=== PATIENT | female | born 1955 | race Caucasian/White ===

== ENCOUNTER → 2021-10-02 09:01 | Outpatient (BNVA) | payer MEDICARE, SELFPAY | PROVIDERS: PCP Nurse Practitioner Adult Health; Visit Provider Nurse Practitioner Family | DX: R25.1 Tremor, unspecified (principal); F09 Unspecified mental disorder due to known physiological condition; R26.9 Unspecified abnormalities of gait and mobility; Z86.79 Personal history of other diseases of the circulatory system | CPT/HCPCS: 99202 ==

== ENCOUNTER 2022-10-24 11:23 | Outpatient (AMB) | payer MEDICARE, SELFPAY ==
[2022-10-24 11:30] VITALS: BP 152/92; PULSE 51; O2SAT 96; BMI 25.7
--- NOTE | 2022-10-24 11:30 | A.OFFVIS_ITS ---
Intake Vital Signs 10/24/22 11:30 Height 5 ft Weight 131 lb 8 oz BMI 25.7 BP 152/92 H Blood Pressure Location Lt brachial Position Sitting Pulse 51 Pulse Source Pulse Oximeter Pulse Oximetry (%) 96 Oxygen Delivery Method Room Air Intake Visit Reasons: Follow up - [facility] Cog Imp-Confirmed Intake Note: Pt presents with her daughter as a f/u. new hearing aids have helped some. Set up testing for neuro psych and MRI. Things are a little up and down. Wash House Worker Required: No Accompanied by: Daughter Allergies No Known Allergies Allergy (Verified 10/24/22 11:37) HPI HPI Comments History of Present Illness Details 67 -yr-old female presents for f/u visit, accompanied by her dtr. Pt was last seen in September 2021, Pt reports the following interval medical history changes: She missed her last appt with us d/t having a mild case of COVID-19. She has not done the brain MRI or neuro-psych testing yet- she has rec'd [facility] for both- will call today to schedule. She wonders if we can take over her CPAP. Sttaets that she used to see [facility] however it has been some time- she is no longer receiving supplies. Dr Sharif has tried to get her records but has not rec'd them. I checked [facility] portal- no sleep notes found. ADL's: Ind- feels slower overall Swallowing: No issues Drooling: None Orthostatic lightheadedness: Has had this since her aneurysms Constipation: Yes, manages w/ colace Freezing: None Stiffness: In the early am- but better after stretching Tremor: BUE rest and action tremor, or if more physically active or nervous- but better since using albuterol less. Dtr notices pt puckers her mouth sometimes. No lingual movements. Falls: None. But may be prone to go backwards Hallucinations: None Memory: Forgetful. May forget about voicemails. Tries to write something down- but then forgets wheere she wrote something down. Now has hearing aides- helpful. Sleep: Sleeping ok. Using her CPAP- about 5 hrs a night. Takes a daily rest/nap- which helps her clear her head. Now using an OTC Zonked Sleepy Gummy- THC, CBD, melatonin. Exercise: She did PT- helped but still slow. She is now taking walking with her son and using her foot pedaler. [facility] Medical History (Updated 10/24/22 @ 12:53 by ALESSIA Benjamin) ADD (attention deficit disorder) Anxiety Heart murmur Hiatal hernia HTN (hypertension) Nephrolithiasis BAILEY on CPAP Pulmonary emphysema Surgical History H/O craniotomy S/P tonsillectomy and adenoidectomy Family History Mother Lung cancer Diabetes HTN (hypertension) Father Heart disease Family/Other No problems noted. Family/Other Diabetes Family/Other Heart disease Family/Other ADHD PTSD (post-traumatic stress disorder) Social History (Updated 10/24/22 @ 11:43 by Anuradha Hull [facility]) Alcohol intake: current Alcohol intake frequency: holidays/special occasions only Patient Tobacco Use Status: Never used Tobacco Substance Use Type: Marijuana Review of Systems Const All systems reviewed & are unremarkable except as noted in HPI and below Physical Exam Vital Signs: Last Vital Signs Pulse 51 10/24/22 11:30 BP 152/92 H 10/24/22 11:30 Pulse Ox 96 10/24/22 11:30 Oxygen Delivery Method Room Air 10/24/22 11:30 BMI result Body Mass Index 25.7 Const General: cooperative and no acute distress Resp Effort & Inspection: normal respiratory effort and able to speak in complete sentences Neuro Other: Left temporal region palpable hardware. Expression: Intact Voice: ok Tremor: BUE mild rest, postural, kinetic tremor Tone: No appreciable rigidity. Dyskinesia: None FFM: Slow Foot taps: Decreased on right- more difficulty completing on right Gait: Slow to stand, can stand without arms, decreased arm swing, steadier gait today. Psych: Pleasant affect, but anxious. Cognition: Improved ability to follow exam directions. Assessment & Plan Assessment & Plan (1) Cognitive dysfunction: Comment: w/ h/o ADD, anxiety Code(s): F09 - Unspecified mental disorder due to known physiological condition (2) Tremor: Comment: ? early neurodegenerative process, ? late effect ofaneurysm/craniotomy, ? other CV/intracerebral process Code(s): R25.1 - Tremor, unspecified (3) Gait difficulty: Code(s): R26.9 - Unspecified abnormalities of gait and mobility (4) History of nontraumatic rupture of cerebral aneurysm: Comment: s/p craniotomy Code(s): Z86.79 - Personal history of other diseases of the circulatory system Plan Pt is again advised to undergo brain MRI w/wo- to assess for any intracerebral processes. Pt is again advised to undergo a f/u neuro-psych eval. Continue regualr walks and using foot pedaler. Will request sleep records from [facility]- depending on results- may defer to Dr Sharif. Discussed that although her CBD/Melatonin/TCH gummy may be helping her to fall asleep, it may result in overall poorer sleep quality lucy d/t the THC component Future considerations: DaTscan. f/u in 3 months or sooner prn. Coding Level of Care Code Est Pt Level 4 (12674) Diagnoses Cognitive dysfunction F09 Tremor R25.1 Gait difficulty R26.9 History of nontraumatic rupture of cerebral aneurysm Z86.79
== END 2022-10-24 12:32 | disposition home or self-care (01) ==
PROVIDERS: Visit Provider Nurse Practitioner Family
DX: R41.89 Other symptoms and signs involving cognitive functions and awareness (principal); R25.1 Tremor, unspecified; R26.9 Unspecified abnormalities of gait and mobility; I69.898 Other sequelae of other cerebrovascular disease
CPT/HCPCS: 99214

== ENCOUNTER → 2022-10-24 11:23 | Outpatient (BNVA) | payer MEDICARE, SELFPAY | PROVIDERS: Visit Provider Nurse Practitioner Family | DX: F09 Unspecified mental disorder due to known physiological condition (principal); R25.1 Tremor, unspecified; R26.9 Unspecified abnormalities of gait and mobility; Z86.79 Personal history of other diseases of the circulatory system | CPT/HCPCS: 99212 ==

== ENCOUNTER 2023-01-12 13:04 | Outpatient (REF) | payer MEDICARE, SELFPAY ==
--- NOTE | ~2023-01-12 | MR_ITS ---
EXAMINATION: MR BRAIN WITHOUT CONTRAST CLINICAL INFORMATION: 67 year old status post aneurysm clipping for previous bleed in 2004, with memory and gait problems. COMPARISON: None available. TECHNIQUE: Multiplanar multisequence MR imaging of the brain was done without IV contrast. Some limitations related to metallic hardware artifact from previous surgery. FINDINGS: Brin Volume: Umvu-zr-aocqjkik generalized diffuse parenchymal volume loss within the limitations of qualitative assessment. Structural: There is a large ovoid region of magnetic susceptibility artifact partially obscuring the region of the sella, suprasellar cistern and inferior frontal lobes centrally and asymmetric to the left of midline which limits the examination. Brain and Meninges: DWI sequence demonstrates no restricted diffusion to suggest acute or subacute cerebral ischemia. Scattered patchy and punctate foci of FLAIR/T2 signal hyperintensity are seen within the subcortical and deeper white matter of both cerebral hemispheres, also involving the left external capsule and retrolenticular portion consistent with chronic ischemic microangiopathy. There is a 6 mm remote lacunar infarct in the right dorsomedial thalamus and there is patchy T2 hyperintensity in the left thalamus consistent with chronic ischemic microangiopathy. There is a focus of encephalomalacia with parenchymal gliosis in the anterior right frontal lobe which appears to be related to a previous shunt tube placement. Minimal foci of probable chronic ischemic microangiopathy suspected in the manisha. No extra-axial fluid collections, significant space-occupying process or mass effect are identified. There is some parenchymal T2 hyperintensity along the medial portions of the anterior frontal lobes bilaterally, bordering the anterior interhemispheric fissure, which appears widened, consistent with the history of a ruptured anterior communicating artery aneurysm and probable postoperative changes. There is probable etat crible and chronic ischemic microangiopathy involving the putamen and globus pallidus bilaterally. Ventricles and Subarachnoid Spaces: The ventricular system and subarachnoid spaces are consistent with tjmt-ti-txydwmso volume loss without hydrocephalus. Orbital Structures: The visualized orbital structures are grossly unremarkable within the limitations of the study. Vascular: Signal voids are noted in the visualized major intracranial vessels within the limitations of the exam, with obscuration of the proximal left MCA and supraclinoid left internal carotid artery due to ferromagnetic artifact and partial obscuration of the right supraclinoid ICA. Osseous Structures, Sinuses/Mastoids, Extracranial Soft Tissues: Left frontal craniotomy changes noted, with otherwise normal marrow signal. Probable retention cysts in the left maxillary sinus. MR/MR head/brain wo con IMPRESSION: 1. Chronic ischemic microangiopathy in the white matter of both cerebral hemispheres and in the manisha with a remote lacunar infarct in the right thalamus. 2. Hqvl-ql-anwyirft generalized diffuse parenchymal volume loss without hydrocephalus. 3. Postoperative encephalomalacia along the medial aspect of the anterior frontal lobes bilaterally bordering the anterior interhemispheric fissure and postoperative metallic hardware artifact obscuring the sella and suprasellar cistern regions consistent with the history of a ruptured anterior communicating artery aneurysm. 4. Etat crible and chronic ischemic microangiopathy in the basal ganglia bilaterally and chronic ischemic changes in the left thalamus. 5. Small focus of encephalomalacia in the anterior right frontal lobe likely related to a previous shunt tube placement and left frontal craniotomy changes noted.
--- NOTE | ~2023-01-12 | XR_ITS ---
EXAMINATION: XR ORBITS, FOREIGN BODY SCREENING CLINICAL INFORMATION: Pre-MRI screening. COMPARISON: None available. TECHNIQUE: 2 views of the orbits were obtained. FINDINGS: There is an aneurysm clip projecting medial to the left orbit on the frontal projection. There are cranial flap fixation metallic plates. XR/XR pre mri screening IMPRESSION: As above.
== END 2023-01-12 13:05 | disposition home or self-care (01) ==
LOC: HO.MRI 13:04
PROVIDERS: Visit Provider Nurse Practitioner Family
DX: F09 Unspecified mental disorder due to known physiological condition (principal); R25.1 Tremor, unspecified; R26.9 Unspecified abnormalities of gait and mobility; Z86.79 Personal history of other diseases of the circulatory system
CPT/HCPCS: 70551

== ENCOUNTER 2023-01-29 14:12 | Outpatient (AMB) | payer MEDICARE, SELFPAY ==
--- NOTE | 2023-01-29 14:13 | A.OFFVIS_ITS ---
Intake Vital Signs 01/29/23 14:15 Height 5 ft Weight 127 lb 4 oz BMI 24.8 BP 130/76 Blood Pressure Location Rt brachial Position Sitting Pulse 61 Pulse Source Pulse Oximeter Pulse Oximetry (%) 97 Oxygen Delivery Method Room Air Intake Visit Reasons: 3m follow up cognitive impairment-LVM Intake Note: Patient presents for 3 month follow up. Patient states Just my memory, same concerns we've been here for Allergies No Known Allergies Allergy (Verified 01/29/23 14:15) Medication List - Last Reconciled 01/29/23 by ALESSIA Benjamin acetaminophen (Tylenol) 325 mg PO QID PRN albuterol sulfate 90 mcg/actuation 2 puffs inhalation Q6H PRN aspirin (Adult Low Dose Aspirin) 81 mg PO DAILY atorvastatin 10 mg PO DAILY biotin 500 mcg PO DAILY calcium carbonate 500 mg PO DAILY cholecalciferol (vitamin D3) 25 mcg PO DAILY dextroamphetamine-amphetamine 20 mg ER 1 cap PO DAILY PRN docusate sodium (Colace) 200 mg PO DAILY dfazyuijlud-zucbsphgf-ovvbmbwi 100-62.5-25 mcg (Trelegy Ellipta) 1 inh inhalation DAILY lisinopril-hydrochlorothiazide 20-25 mg 1 tab PO DAILY metoprolol succinate ER 50 mg PO DAILY dxmxomtr-djv-ibkx-FA-vit K-lut 8 mg iron-400 mcg-50 mcg (Centrum Silver Women) 1 tab PO DAILY potassium chloride ER 10 mEq PO BID sertraline 50 mg PO DAILY [Zonked PO BEDTIME PRN] HPI HPI Comments History of Present Illness Details 68-yr-old female presents for f/u visit, accompanied by her dtr. Pt endorses the following interval medical history changes: sebaceous cyst excision- currently on doxycycline. Pt reports she continues to have STM lapses. She can feel anxious, depressed. Is open to seeing a therapist. No unsafe behaviors. Tremor is stable. Brain MRI showed chronic ischemic microangiopathy- in loy cerebral hemispheres, manisha, and basal ganglia, thalamus; chronic right thalamus lacunar infarct, mild- mod generalized volume loss, post-op changes. She has started neuro-psych eval. Dr Sharif is now managing her cPAP. 01/12/23, MR/MR head/brain wo con IMPRESSION: 1. Chronic ischemic microangiopathy in t he white matter of both cerebral hemispheres and in the manisha with a remote lacunar infarct in the right thalamus. 2. Dvas-yi-reowcfdw generalized diffuse parenchymal volume loss without hydrocephalus. 3. Postoperative encephalomalacia along the medial aspect of the anterior frontal lobes bilaterally bordering the anterior interhemispheric fissure and postoperative metallic hardware artifact obscuring the sella and suprasellar cistern regions consistent with the history of a ruptured anterior communicating artery aneurysm. 4. Etat crible and chronic ischemic micr oangiopathy in the basal ganglia bilaterally and chronic ischemic changes in the left thalamus. 5. Small focus of encephalomalacia in th e anterior right frontal lobe likely related to a previous shunt tube placement and left frontal craniotomy changes noted. [facility] Medical History (Updated 01/29/23 @ 14:50 by ALESSIA Benjamin) BAILEY on CPAP Pulmonary emphysema Anxiety Heart murmur Hiatal hernia HTN (hypertension) Nephrolithiasis ADD (attention deficit disorder) Surgical History H/O craniotomy S/P tonsillectomy and adenoidectomy Family History Mother Lung cancer Diabetes HTN (hypertension) Father Heart disease Family/Other No problems noted. Family/Other Diabetes Family/Other Heart disease Family/Other ADHD PTSD (post-traumatic stress disorder) Social History Alcohol intake: current Alcohol intake frequency: holidays/special occasions only Patient Tobacco Use Status: Never used Tobacco Substance Use Type: Marijuana Review of Systems Const All systems reviewed & are unremarkable except as noted in HPI and below Physical Exam Vital Signs: Last Vital Signs Pulse 61 01/29/23 14:15 BP 130/76 01/29/23 14:15 Pulse Ox 97 01/29/23 14:15 Oxygen Delivery Method Room Air 01/29/23 14:15 BMI result Body Mass Index 24.8 Const General: cooperative and no acute distress Orientation/consciousness: patient oriented x3 HEENT Head: Yes normocephalic Resp Effort & Inspection: normal respiratory effort and able to speak in complete sentences Neuro Other: Expression intact BUE rest tremor General: patient oriented x3 and CN's II-XI intact bilaterally Motor exam (neuro): 5/5 motor strength present throughout Psych Appearance: grossly normal Mental Status: mental status grossly normal Speech and movement: Clear speech present Affect: normal affect Attitude: cooperative Thought process: Normal thought process present Thought content: Normal thought content present Assessment & Plan Assessment & Plan (1) Cognitive dysfunction: Comment: w/ h/o ADD, anxiety Code(s): F09 - Unspecified mental disorder due to known physiological condition (2) Tremor: Comment: ? early neurodegenerative process, ? late effect ofaneurysm/craniotomy, ? other CV/intracerebral process Code(s): R25.1 - Tremor, unspecified (3) Anxiety: Code(s): F41.9 - Anxiety disorder, unspecified (4) Depression: Code(s): F32.A - Depression, unspecified (5) History of nontraumatic rupture of cerebral aneurysm: Comment: s/p craniotomy Code(s): Z86.79 - Personal history of other diseases of the circulatory system Plan Reviewed brain MRI report and images- chronic ischemic microangiopathy- in loy cerebral hemispheres, manisha, and basal ganglia, thalamus; chronic right thalamus lacunar infarct, mild-mod generalized volume loss, post-op changes. Discussed importance of continuing to optimize CV risk factors-pt currently normotensive- continue ASA, statin, home BP regimen. Continue nightly CPAP use. Continue regular physical activity. Monitor tremor/movement s/s- likely secondary to chronic ischemic microangiopathy in the basal ganglia/thalamus. Neuro-psych eval as scheduled. Will refer pt to psychologist. Future considerations: neuroprotective tx, DaTscan. f/u in 3-4 months or sooner prn. Orders: Referrals Psychology Referral F32.A - Depression, unspecified, F41.9 - Anxiety disorder, unspecified, F98.8 - Other specified behavioral and emotional disorders with onset usually occurring in childhood and adolescence Coding Level of Care Code Est Pt Level 4 (03066) Diagnoses Cognitive dysfunction F09 Tremor R25.1 Anxiety F41.9 Depression F32.A History of nontraumatic rupture of cerebral aneurysm Z86.79
[2023-01-29 14:15] VITALS: BP 130/76; PULSE 61; O2SAT 97; BMI 24.8
== END 2023-01-29 14:53 | disposition home or self-care (01) ==
PROVIDERS: PCP Nurse Practitioner Adult Health; Visit Provider Nurse Practitioner Family
DX: R25.1 Tremor, unspecified (principal); R41.89 Other symptoms and signs involving cognitive functions and awareness; R41.840 Attention and concentration deficit; F41.9 Anxiety disorder, unspecified; F32.A Depression, unspecified; Z86.79 Personal history of other diseases of the circulatory system
CPT/HCPCS: 99214

== ENCOUNTER → 2023-01-29 14:12 | Outpatient (BNVA) | payer MEDICARE, SELFPAY | PROVIDERS: PCP Nurse Practitioner Adult Health; Visit Provider Nurse Practitioner Family | DX: F09 Unspecified mental disorder due to known physiological condition (principal); F41.9 Anxiety disorder, unspecified; F32.A Depression, unspecified; R25.1 Tremor, unspecified; Z86.79 Personal history of other diseases of the circulatory system | CPT/HCPCS: 99212 ==

== ENCOUNTER 2023-08-31 09:02 | Outpatient (AMB) | payer OTHER, SELFPAY ==
--- NOTE | 2023-08-31 09:04 | A.OFFVIS_ITS ---
Vital Signs 08/31/23 09:05 Height 5 ft Weight 125 lb BMI 24.4 BP 168/82 H Blood Pressure Location Rt brachial Position Sitting Intake Visit Reasons: 4 mnts f/u appt for cognitive impairment-CONF Intake Note: Patient presents for 4 month follow up. Allergies No Known Allergies Allergy (Verified 08/31/23 09:15) Medication List - Last Reconciled 08/31/23 by ALSESIA Benjamin acetaminophen (Tylenol) 325 mg PO QID PRN albuterol sulfate 90 mcg/actuation 2 puffs inhalation Q6H PRN aspirin (Adult Low Dose Aspirin) 81 mg PO DAILY atorvastatin 10 mg PO DAILY biotin 500 mcg PO DAILY calcium carbonate 500 mg PO DAILY cholecalciferol (vitamin D3) 25 mcg PO DAILY dextroamphetamine-amphetamine 20 mg ER 1 cap PO DAILY 28 days docusate sodium (Colace) 200 mg PO DAILY umemnfgrarf-ptuqaiccc-ufbybplp 100-62.5-25 mcg (Trelegy Ellipta) 1 inh inhalation DAILY lisinopril-hydrochlorothiazide 20-25 mg 1 tab PO DAILY metoprolol succinate ER 50 mg PO DAILY dmtedken-zot-yjnp-FA-vit K-lut 8 mg iron-400 mcg-50 mcg (Centrum Silver Women) 1 tab PO DAILY potassium chloride ER 10 mEq PO BID sertraline 150 mg (1.5 x 100 mg) PO DAILY 90 days valsartan 160 mg PO DAILY [Zonked PO BEDTIME PRN] HPI Comments Details: 68-yr-old female presents for f/u visit. Pt reports Dr Sharif started pt on Valsartan to optimize her BP control- SBP was running in 150s-180s- as pt had not seen a PCP in sometime. She has a new PCP appt next month. Since starting Valsartan, she denies lightheadedness. Today, her BP was initially was 168/82 and on re-check 140/80. She reports her cognition is stable, however she can still find herself distracted at times. She had f/u neuro-psych eval- which showed stable cognition with difficulties c/w h/o ADHD, but also increased depression. She recommended pt to not rely on family as much, use compensatory strategies, increase socialization, decrease THC use, and optimize her anti-depressant tx. She does write sticky notes- but may lose them at times. Pt has stopped her THC gummies. She uses a CPAP- sleeps 4-7 hrs per night- states her residual AHI is usually < 2/hr. She has a lead on a therapist/med prescriber- is in process of making an appointment. [facility] Medical History (Updated 08/31/23 @ 09:49 by ALESSIA Benjamin) BAILEY on CPAP Pulmonary emphysema Anxiety Heart murmur Hiatal hernia HTN (hypertension) Nephrolithiasis ADD (attention deficit disorder) Surgical History H/O craniotomy S/P tonsillectomy and adenoidectomy Family History Mother Lung cancer Diabetes HTN (hypertension) Father Heart disease Family/Other No problems noted. Family/Other Diabetes Family/Other Heart disease Family/Other ADHD PTSD (post-traumatic stress disorder) Social History Alcohol intake: current Alcohol intake frequency: holidays/special occasions only Patient Tobacco Use Status: Never used Tobacco Substance Use Type: Marijuana Review of Systems Const All systems reviewed & are unremarkable except as noted in HPI and below Physical Exam Const General: cooperative and no acute distress HEENT Head: Yes normocephalic Resp Effort & Inspection: normal respiratory effort and able to speak in complete sentences Neuro Other: A&O x's 3, w/ mild STM lapses. General: gait normal and CN's II-XI intact bilaterally Cognition (Neuro): normal cognition Motor exam (neuro): 5/5 motor strength present throughout Psych Appearance: grossly normal Mental Status: mental status grossly normal Affect: normal affect Attitude: cooperative Thought process: Normal thought process present Assessment & Plan Assessment & Plan (1) ADHD (attention deficit hyperactivity disorder): Code(s): F90.9 - Attention-deficit hyperactivity disorder, unspecified type Category: Medical (2) Depression: Code(s): F32.A - Depression, unspecified Category: Medical (3) Tremor: Comment: ? early neurodegenerative process, ? late effect ofaneurysm/craniotomy, ? 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 Reviewed recent f/u neuro-psych eval report. Discussed importance of continuing to optimize CV risk factors-pt currently normotensive-continue ASA, statin, home BP regimen. Monitor BP. Continue nightly CPAP use. Continue regular physical activity. Will refill pt's Sertraline and Adderall until pt can establish care w/ psychotherapist. Monitor tremor/movement s/s- likely secondary to chronic ischemic microangiopathy in the basal ganglia/thalamus. Future considerations: neuroprotective tx, DaTscan. f/u in 6 months or sooner prn. Medications: Changed From sertraline 50 mg PO DAILY To sertraline 150 mg (1.5 x 100 mg) PO DAILY 90 days 135 tabs 1RF Refilled dextroamphetamine-amphetamine 20 mg ER 1 cap PO DAILY 28 days 28 caps 0RF F98.8 - Other specified behavioral and emotional disorders with onset usually occurring in childhood and adolescence Coding Level of Care Code Est Pt Level 4 (70851) Diagnoses ADHD (attention deficit hyperactivity disorder) F90.9 Depression F32.A Tremor R25.1 Cognitive dysfunction F09
[2023-08-31 09:05] VITALS: BP 168/82; BMI 24.4
== END 2023-08-31 09:49 | disposition home or self-care (01) ==
PROVIDERS: PCP Nurse Practitioner Adult Health; Visit Provider Nurse Practitioner Family
DX: F90.9 Attention-deficit hyperactivity disorder, unspecified type (principal); F32.A Depression, unspecified; R25.1 Tremor, unspecified; R41.89 Other symptoms and signs involving cognitive functions and awareness
CPT/HCPCS: 99214

== ENCOUNTER → 2023-08-31 09:02 | Outpatient (BNVA) | payer OTHER, SELFPAY | PROVIDERS: PCP Nurse Practitioner Adult Health; Visit Provider Nurse Practitioner Family ==

== ENCOUNTER 2024-03-21 09:21 | Outpatient (AMB) | payer OTHER, SELFPAY ==
[2024-03-21 09:46] VITALS: BP 118/72; BMI 25.1
--- NOTE | 2024-03-21 09:46 | MHC.OFFVIS ---
Vital Signs 03/21/24 09:46 Height 5 ft Weight 128 lb 8 oz BMI 25.1 BP 118/72 Blood Pressure Location Rt brachial Position Sitting Intake Visit Reasons: 7 month F/U Intake Note: Patient presents for follow up Allergies No Known Allergies Allergy (Verified 03/21/24 09:47) HPI Comments Details: 68-yr-old female presents for f/u visit for tremor. Today her BP is controlled 118/82. She says her sleeps is terrible up all hours of night, sleeps about 4-8 hours a night, tried Melatonin and Ambien. However when she uses CPAP she gets better quality of sleep, residual AHI <2, managed by Dr. Sharif. She reports her cognition is at baseline more forgetful, forgets appointments, and groceries. She had f/u neuro-psych eval- which showed stable cognition with difficulties c/w h/o ADHD, but also increased depression. [facility] Dr. Alberts, Telehealth, every other month, was tapered off Aderral and now takes Trintellex - antidepressant and memory. She c/o tremors worse when anxious. She has help with cleaning the home, daughter and son help her she is independent with all ADLs. She depends on family since her divorce 5 years ago, uses compensatory strategies, discussed increasing socialization, decrease THC use, and optimize her anti-depressant tx. She does write sticky notes- loses them. She has a lead on a therapist/med prescriber- is in process of making appointment. Patient was seen by myself with Dr. Sarah. [facility] Medical History BAILEY on CPAP Pulmonary emphysema Anxiety Heart murmur Hiatal hernia HTN (hypertension) Nephrolithiasis ADD (attention deficit disorder) Surgical History H/O craniotomy S/P tonsillectomy and adenoidectomy Family History Mother Lung cancer Diabetes HTN (hypertension) Father Heart disease Family/Other No problems noted. Family/Other Diabetes Family/Other Heart disease Family/Other ADHD PTSD (post-traumatic stress disorder) Social History Alcohol intake: current Alcohol intake frequency: holidays/special occasions only Patient Tobacco Use Status: Never used Tobacco Substance Use Type: Marijuana Review of Systems Const All systems reviewed & are unremarkable except as noted in HPI and below Physical Exam Vital Signs: Last Vital Signs BP 118/72 03/21/24 09:46 BMI result Body Mass Index 25.1 Const General: cooperative, comfortable and no acute distress Nutritional Appearance: average body habitus Orientation/consciousness: patient oriented x3 HEENT General nose exam: Abnormal external nose present nasal ecchymosis (R. nare scarring post surgical procedure) and nasal erythema Eyes Pupils: Equal, round and reactive pupils present Resp Effort & Inspection: normal respiratory effort and able to speak in complete sentences Neuro General: patient oriented x3 Cranial nerves: Yes CN's II-XII intact bilaterally, Yes Facial sensation intact/muscles of mastication intact, Yes Equal, round and reactive pupils present, Yes Normal accommodation reflex present, Yes Bilaterally intact EOM present, Yes Normal facial strength present, Yes Midline tongue present, Yes Symmetric palate elevation present, Yes Ability to bilaterally rotate head present and Yes Ability to bilaterally elevate shoulders present Cognition (Neuro): normal cognition Gait exam (Neuro): Normal gait present Motor exam (neuro): 5/5 motor strength present throughout and Normal motor muscle tone present throughout Deep tendon reflexes (DTR's): Right triceps reflex intensity grade: 2+, Left triceps reflex intensity grade: 2+, Rt Biceps (C5, C6): 2+, Left biceps reflex intensity grade: 2+, Right brachioradialis reflex intensity grade: 2+, Left brachioradialis reflex intensity grade: 2+, Right patellar reflex intensity grade: 2+ and Left patellar reflex intensity grade: 2+ Coordination: [id number] test normal Psych Appearance: well kempt Speech and movement: Pressured speech present Affect: normal affect Attitude: cooperative Thought content: Normal thought content present Insight: Good insight present (Psych) Judgement: Good judgement present (Psych) Orientation What is the (year) (season) (date) (day) (month)?: year, season, date, day and month Where are we (state) (county) (town or city) (hospital) (floor)?: state, county, town or [facility], hospital/clinic and floor Registration Name of 3 unrelated objects clearly and slowly, then ask patient to repeat all 3 of them. (1st repeat determines score. Make sure they can repeat all three): object 1, object 2 and object 3 Attention & Calculation (CHOOSE ONE) Spell WORLD backwards (DLROW): 5 letters Recall Ask patient to repeat the 3 items from question #3.: object 1, object 2 and object 3 Language Show patient a wristwatch & ask what it is. Repeat for pencil.: watch and pencil Ask the patient to repeat the phrase 'No ifs, ands, or buts' after you.: correct Ask the patient to 'take a piece of paper with their right hand' 'fold paper in half' 'place paper on floor': take paper in right hand, fold paper in half and place paper on floor Print the sentence 'CLOSE YOUR EYES' on a piece. If patient actually closes eyes then score.: followed written direction Give patient a blank piece of paper & ask to write a sentence. Score if it contains a noun & verb.: sentence contains subject and verb Ask patient to copy figure of intersecting pentagons exactly. Score if all 10 angles & 2 intersects are included.: all 10 angles present & 2 are intersected Score Score: 30 Results Reviewed Results Reviewed: Neuropsychiatry testing [facility] Assessment & Plan Assessment & Plan (1) ADHD (attention deficit hyperactivity disorder): Code(s): F90.9 - Attention-deficit hyperactivity disorder, unspecified type Category: Medical Qualifiers: Attention deficit-hyperactivity disorder type: unspecified Qualified Code(s): F90.9 - Attention-deficit hyperactivity disorder, unspecified type (2) Depression: Code(s): F32.A - Depression, unspecified Category: Medical Qualifiers: Depression Type: unspecified Qualified Code(s): F32.A - Depression, unspecified (3) Tremor: Comment: ? early neurodegenerative process, ? late effect ofaneurysm/craniotomy, ? 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 Reviewed recent f/u neuro-psych evaluation, she will f/u with Neuropsych for Discussed importance of continuing to optimize CV risk factors-pt currently normotensive-continue ASA, statin, home BP regimen. Monitor BP. MMSE is 29/30. Continue nightly CPAP use. Continue regular physical activity and continue to engage in social activities. Psychiatrist every other month for ADHD meds, now on Trintellix, find a therapist on Psychology today if possible and establish a therapeutic relationship. Monitor tremor/movement s/s- likely secondary to chronic ischemic microangiopathy in the basal ganglia/thalamus. Future considerations: neuroprotective tx, DaTscan. f/u with PCP for diabetes and BP monitoring, call us for any concerns or questions IRT tremors. Coding Level of Care Code Est Pt Level 3 (20415) Diagnoses Attention deficit hyperactivity disorder (ADHD), unspecified ADHD type F90.9 Attention deficit-hyperactivity disorder type: unspecified Depression, unspecified depression type F32.A Depression Type: unspecified Tremor R25.1 Cognitive dysfunction F09 Time Spent (min) 30 Comment worsening anxiety
--- OUTSIDE RECORDS SUMMARY | 2024-03-23 13:55 | XMS_ITS ---
Author Organization [facility] Address [address] [place] [address] Care Team Providers Care Senior Research Executive Name Role Phone VIOLETTE VALENTINE Primary Care Provider VIOLETTE VALENTINE Unavailable [phone] REASON FOR VISIT Medical records Encounters Encounter Location Date Provider Diagnosis [facility] [address] [place] [address] 03/23/2023 VIOLETTE VALENTINE Plan Of Treatment No Information Progress Notes * Hannah LOPEZ ADOB:1954 (68 yo F)Acc No.[id number]:03/23/2023 Patient:?Hannah Lopez :1955???Age:68 Y???Sex:Female Address:[address] , [place], [address] * true * Date:? Generated for Printi ng/Fajanng/eTransmitting on:?03/23/2024 01:55 PM EST
--- OUTSIDE RECORDS SUMMARY | 2024-03-23 13:55 | XMS_ITS ---
Author Organization [facility] Address [address] [place] [address] Care Team Providers Care Conference Manager Name Role Phone MEME VIOLETTE Primary Care Provider VIOLETTE VALENTINE Unavailable [phone] ANGIE CAMACHO Unavailable [phone] REASON FOR VISIT Refill Controlled Medications Medication SIG (Take, Route, Fr equency, Duration) Notes Start Date End Date Status Adderall XR 20 MG 1 capsule in the mor ashley Orally Once a day for 28 days 02/26/2023 Active Encounters Encounter Location Date Provider Diagnosis [facility] [address] [place] [address] 02/25/2023 ANGIE CAMACHO Attention deficit disorder (ADD) without hyperactivity F98.8 Assessments Encounter Date Diagnosis (ICD Code) Assessment Notes Treatment Notes Treatment Clinical Notes Section Notes 02/25/2023 Attention deficit disorder (ADD) without hyperactivity (ICD-10 - F98.8) Plan Of Treatment Medication Medication Name Sig Start Date Stop Date Notes Adderall XR 20 MG 1 capsule in the mor ashley Orally Once a day for 28 days 02/26/2023 Progress Notes * Hannah LOPEZ ADOB:1954 (68 yo F)Acc No.[id number]:02/25/2023 Patient:?Hannah Lopez :1955???Age:68 Y???Sex:Female Address:[address] , [place], [address] * Refills? Refill Adderall XR Capsule Extended Release 24 Hour, 20 MG, Orally, 28 Capsule, 1 capsule in the morning, Once a day, 28 days, Refills=0 * true * Date:? Generated for Felicia skelton/Low/Matyitting on:?03/23/2024 01:55 PM EST
--- OUTSIDE RECORDS SUMMARY | 2024-03-23 13:55 | XMS_ITS ---
Author Organization [facility] Address [address] [place] [address] Care Team Providers Care Medical Information Officer Name Role Phone MEME VIOLETTE Primary Care Provider VIOLETTE VALENTINE Unavailable [phone] ANGIE CAMACHO Unavailable [phone] REASON FOR VISIT Refill Request Medications Medication SIG (Take, Route, Fr equency, Duration) Notes Start Date End Date Status Adderall XR 20 MG 1 capsule in the mor ashley Orally Once a day for 28 days 03/24/2023 Active Encounters Encounter Location Date Provider Diagnosis [facility] [address] [address] [place] [address] 03/24/2023 ANGIE CAMACHO Attention deficit disorder (ADD) without hyperactivity F98.8 Assessments Encounter Date Diagnosis (ICD Code) Assessment Notes Treatment Notes Treatment Clinical Notes Section Notes 03/24/2023 Attention deficit disorder (ADD) without hyperactivity (ICD-10 - F98.8) Plan Of Treatment Medication Medication Name Sig Start Date Stop Date Notes Adderall XR 20 MG 1 capsule in the mor ashley Orally Once a day for 28 days 03/24/2023 Progress Notes * Hannah LOPEZ ADOB:1954 (68 yo F)Acc No.[id number]:03/24/2023 Patient:?Hannah Lopez :1955???Age:68 Y???Sex:Female Address:[address] , [place], [address] * Refills? Refill Adderall XR Capsule Extended Release 24 Hour, 20 MG, Orally, 28 Capsule, 1 capsule in the morning, Once a day, 28 days, Refills=0 * true * Date:? Generated for Felicia skelton/Low/Matyitting on:?03/23/2024 01:55 PM EST
--- OUTSIDE RECORDS SUMMARY | 2024-03-23 13:56 | XMS_ITS | Patient Health Record ---
Author Organization [facility] Address [address] [place] [address] Care Team Providers Care Ramp Agent Name Role Phone VIOLETTE VALENTINE Primary Care Provider VIOLETTE VALENTINE Unavailable [phone] ANGIE CAMACHO Unavailable [phone] Allergies No Known Allergies Reason For Referral No Information Medications Medication SIG (Take, Route, Frequency, Duration) Notes Start Date End Date Status Atorvastatin Calcium 10 MG TAKE 1 TABLET BY MOUTH EVERY DAY for 90 Active Adderall XR 20 MG 1 capsule in the morning Orally Once a day for 28 days 03/24/2023 Active Sertraline HCl 100 MG 1 1/2 tablets Orally Once a day for 90 days Active Ritalin LA 10 MG 1 capsule in the morning Orally Once a day for 28 days 06/13/2022 Not-Taking Augmentin 875-125 MG 1 tablet Orally every 12 hrs for 10 days Not-Taking Albuterol Sulfate HFA 108 (90 Base) MCG/ACT 1 puff as needed Inhalation every 4 hrs Active Tylenol 325 MG 1 capsule as needed Orally every 4 hrs Not-Taking ProAir HFA 108 (90 Base) MCG/ACT 1 puff as needed Inhalation every 4 hrs Not-Taking Refresh 1.4-0.6 % as directed Ophthalmic BID Active Lisinopril 20 MG TAKE 1 TABLET BY MOUTH EVERY DAY for 90 days Not-Taking Melatonin 5 MG 1 tablet at bedtime as needed Orally Once a day Active Paxlovid (300/100) 20 x 150 MG & 10 x 100MG as directed Orally twice a day for 5 days Not-Taking Trelegy Ellipta 100-62.5-25 MCG/INH 1 puff Inhalation Once a day Active Mirtazapine 15 MG 1 tablet at bedtime Orally Once a day Not-Taking Aspir-81 81 MG 1 tablet Orally Once a day for 90 Active hydroCHLOROthiazide 25 MG TAKE 1 TABLET BY MOUTH EVERY DAY IN THE MORNING FOR 30 DAYS for 30 Not-Taking Biotin 10 MG 1 tablet Orally Once a day Active Hydrocortisone Hermes-Pramoxine 2.5-1 % 1 application as needed Externally twice a day Active Fish Oil 1200 MG 1 capsule Orally Once a day Not-Taking Calcium 600 600 MG 1 TAB Orally Twice a day Active Lexapro 20 MG 1 tablet Orally Once a day for 30 day(s) Not-Taking Breo Ellipta 100-25 MCG/INH 1 puff Inhalation Once a day for 30 Not-Taking Centrum Silver - 1 TAB Orally Daily Active Lexapro 5 MG 1 tablet Orally Once a day Take with Lexapro 10mg to = 15mg daily Not-Taking [facility] Stool Softener 100 MG 2 capsules as needed Orally Once a day Active Lexapro 10 MG 1 tablet Orally Once a day Take with Lexapro 5mg to = 15mg daily Not-Taking Tums 500 MG Orally PRN uses prn for hiatal hernia Active Ferrous Sulfate 325 (65 Fe) MG 1 tablet Orally Once a day Not-Taking Vitamin D3 1000 UNIT 1 capsule Orally Once a day Active HYDROcodone-Acetaminophen 5-325 MG 1 tablet as needed Orally every 6 hrs prn Not-Taking Lisinopril-hydroCHLOROthi azide 20-25 MG TAKE 1 TABLET BY MOUTH EVERY DAY for 90 Active Aleve 220 MG 1 capsule with food or milk as needed Orally every 12 hrs PRN Active Metoprolol Succinate ER 50 MG TAKE 1 TABLET BY MOUTH EVERY DAY for 90 Active Klor-Con 10 10 MEQ 1 tablet with food Orally Twice a day for 90 days Active Immunizations Vaccine Route Administration Date Status Comme nts Influenza (split), 3 yrs and above IM Intramuscular 01/30/2019 Administered Pneumococcal polysaccharide PPV23 Unknown 06/11/2021 Administered Tdap IM Intramuscular 06/11/2021 Administered [facility] Tdap Unknown 01/03/2010 Pending SHINGRIX Unknown 04/24/2020 Administered dose 2 dose 1 12/29/2019 Pneumococcal conjugate PCV 13 Unknown 01/12/2020 Administered Influenza, high dose seasonal Unknown 01/11/2021 Administered Social History Tobacco Use: Social History Observation Description Date Details (start date - stop date) Never Smoker NA - NA Tobacco Use/Smoking Question Answer Notes Are you a nonsmoker Additional Findings: Tobacco Non-User Aggressive non-smoker Alcohol Screen (Audit-C) Question Answer Notes Did you have a drink contain ing alcohol in the past year? Yes How often did you have a dri nk containing alcohol in the past year? 2 to 4 times a month (2 points) How many drinks did you have on a typical day when you were drinking in the past year? 1 or 2 drinks (0 point) How often did you have 6 or more drinks on one occasion in the past year? Never (0 point) Points 2 Interpretation Negative Tobacco use other than smoking: Question Answer Notes Are you an other tobacco user? No Section Notes: seatbelt yes sunscreen yes but does not reapply. Tries to avoid sun seatbelt yes sunscreen yes but does not reapply. Tries to avoid sun seatbelt yes sunscreen yes but does not reapply. Tries to avoid sun seatbelt yes sunscreen yes but does not reapply. Tries to avoid sun seatbelt yes sunscreen yes but does not reapply. Tries to avoid sun seatbelt yes sunscreen yes but does not reapply. Tries to avoid sun seatbelt yes sunscreen yes but does not reapply. Tries to avoid sun seatbelt yes sunscreen yes but does not reapply. Tries to avoid sun seatbelt yes sunscreen yes but does not reapply. Tries to avoid sun seatbelt yes sunscreen yes but does not reapply. Tries to avoid sun seatbelt yes sunscreen yes but does not reapply. Tries to avoid sun seatbelt yes sunscreen yes but does not reapply. Tries to avoid sun seatbelt yes sunscreen yes but does not reapply. Tries to avoid sun seatbelt yes sunscreen yes but does not reapply. Tries to avoid sun seatbelt yes sunscreen yes but does not reapply. Tries to avoid sun seatbelt yes sunscreen yes but does not reapply. Tries to avoid sun seatbelt yes sunscreen yes but does not reapply. Tries to avoid sun seatbelt yes sunscreen yes but does not reapply. Tries to avoid sun seatbelt yes sunscreen yes but does not reapply. Tries to avoid sun seatbelt yes sunscreen yes but does not reapply. Tries to avoid sun seatbelt yes sunscreen yes but does not reapply. Tries to avoid sun Problems Problem Type SNOMED Code ICD Code Onset Dates Problem Status W/U Status Risk Notes Problem 88200658 Generalized anxiety disorder (F41.1) Active confirmed Problem 01331166 Pulmonary emphysema, unspecified emphysema type (J43.9) Active confirmed Dr Sharif Trilegy has been very helpful for SOB. No longer symptomatic. Breo caused htn and tremors so d/c Had prevnar 13 and flu vaccine . Has had covid vaccine Problem 730422258 Vertigo (R42) Active confirmed intermittent since cerebral aneurysm. will need fall risk assessment before home alone. Problem 89706774 Hiatal hernia (K44.9) Active confirmed has improved with dietary changes. presented with CP and had negative cardiac krystyna. Problem 28560169 Essential hypertension (I10) 09/22/18 05 Active confirmed Today bp at goal wit addition of hctz. Cont current meds. check basic chem Problem 250201476 Cognitive impairment (R41.89) 10/06/18 05 Active confirmed s/ p subarachnoid hemorrhage repair Worsened life long ADD. Short term memory poor. Needs instructions in writing and oral reminders. Sx worse if does not use amphetamine and CPAP. daughter is noticing increase in cog impairment- needing pill box. not able to manage budget or understand her insurance. will refer back to neuro for further eval 11/25/21 has seen neuro, will request the notes. also advised to double check with [facility] that they are covering her providers. ( insurance change in past year.) 02/25/22 saw neurology ordered mri and f/u with them next month Problem 932805287 Right hemiparesis (G81.91) Active confirmed s/p cerebral aneurysm. Will need PT eval for assistive devices as not able to balance on crutches or use walker. Problem 38356446 Other iron deficiency anemia (D50.8) Active confirmed Problem 76997937 Attention deficit disorder (ADD) without hyperactivity (F98.8) Active confirmed Dr Leena Nam, will hold medication morning of surgery Problem 77582112 Central sleep apnea due to medical condition (G47.37) Active confirmed severe Dx 2011. AHI 32 with lowest oxygenation 77%. CPAP setting 9. If does not use consistently has worseing of short term memory and increase in ADD Problem 351170879 Heart murmur, aortic (I35.8) Active confirmed has appt for echo 11/27/21 at [facility] to recheck murmer 02/25/[address] sharif. echo back Encounters Encounter Location Date Provider Diagnosis [facility] [address] [place] [address] 03/24/2023 ANGIE CAMACHO Attention deficit disorder (ADD) without hyperactivity F98.8 [facility] [address] [place] [address] 03/23/2023 VIOLETTE VALENTINE Assessments Encounter Date Diagnosis (ICD Code) Assessment Notes Treatment Notes Treatment Clinical Notes Section Notes 03/24/2023 Attention deficit disorder (ADD) without hyperactivity (ICD-10 - F98.8) Plan Of Treatment Pending Test Test Name Order Date MAMMOGRAM, SCREENING 07/03/2020 Bone Density 07/26/2021 BASIC METABOLIC PANEL (BMP) 12/09/2021 CBC WITH AUTO DIFF 02/25/2022 CBC WITH AUTO DIFF 06/25/2022 COMPREHENSIVE METABOLIC PANEL 02/25/2022 POTASSIUM 01/29/2022 US Abdomen 02/25/2021 IRON BINDING CAPACITY, UNSATURATED 02/25 Iron and TIBC 11/26/2018 CBC 11/26/2018 Future Test Test Name Order Date COMPREHENSIVE METABOLIC PANEL 05/29/2019 LIPID PROFILE 05/29/2019 POTASSIUM 08/15/2019 Transferrin 02/25/2021 IRON (FE) 02/25/2021 Iron and TIBC 06/11/2021 BASIC METABOLIC PANEL (BMP) 08/12/2021 COMPREHENSIVE METABOLIC PANEL 02/09/2023 Insurance Providers Payer Name Payer Address Payer Phone Subscriber Number Group Number Insured Name Patient Relationship to Insured Coverage Start Date Coverage End Date [employer]ARP MedicareComple te though [employer] [address] [place] [address] [id number] Hannah Gómez Self - patient is the insured Medical (General) History Medical History History ICD Code kidney stones HBP ADD Cerebral Aneaurysm Hiatal Hernia Heart Murmur Anxiety (since aneurysm) Surgical History Surgery Date(Month/Year) Tonsils and Adnoids 1963 craniotomy for cerebral aneurysm 2003 Hospitalization History Reason Date(Month/Year) chest pain diagnoses as hiatal hernia anemia kidney stone
== END 2024-03-21 11:11 | disposition home or self-care (01) ==
PROVIDERS: PCP Nurse Practitioner Adult Health; Visit Provider Nurse Practitioner Family
DX: F90.9 Attention-deficit hyperactivity disorder, unspecified type (principal); F32.A Depression, unspecified; R25.1 Tremor, unspecified
CPT/HCPCS: 99213

== ENCOUNTER → 2024-03-21 09:21 | Outpatient (BNVA) | payer OTHER, SELFPAY | PROVIDERS: PCP Nurse Practitioner Adult Health; Visit Provider Nurse Practitioner Family ==